=== PATIENT | male | born 1930 | race Caucasian/White ===

== ENCOUNTER 2016-07-30 16:53 | Emergency (ER) | payer MEDICARE ==
[~2016-07-30] VITALS: Ht 162.6 cm; Wt 76.0 kg
[~2016-07-30 16:53] MED LIST: CELE20TA PO; CEPH500C3 PO; CLOP75TA PO; FINA5TAB77 PO; GLUCTAB PO; LEVO125T48 PO; METH5TAB PO; PYRI200T4 PO; SIMV40TA PO; TAMS0.4C67 PO; VITA100020 SL; VITA200017 PO; [UNRECOGNIZED DRUG - CODE] SQ
[2016-07-30 17:19] VITALS: BP 107/48; PULSE 90; RESP 20; TEMP 98.5; O2SAT 95
== END 2016-07-30 18:35 | disposition left against medical advice (07) ==
LOC: PHED 16:53
DX: R06.02 Shortness of breath (principal)
CPT/HCPCS: 99281